=== PATIENT | male | born 1945 | race African-American/Black ===

== ENCOUNTER 2020-03-26 03:29 | Inpatient (IN) | payer MEDICARE, OTHER ==
[~2020-03-26] VITALS: Ht 172.7 cm; Wt 87.6 kg
[2020-03-26 04:45] LABS: BASOPHILS % 0.4 % (0.0-2.0); EOSINOPHILS % 0.7 % (0.0-5.0); HEMATOCRIT. 39.7 % (42.0-52.0); HEMOGLOBIN. 13.3 g/dL (14.0-18.0); LYMPHOCYTES % 56.1 % (20.0-50.0); MEAN CORPUSCULAR HEMOGLOBIN 33.3 pg (28.0-32.0); MEAN CORPUSCULAR VOLUME 99.8 fL (80.0-94.0); MEAN PLATELET VOLUME 7.9 fl (7.4-10.4); MONOCYTES % 6.2 % (2.0-8.0); NEUTROPHILS % 36.6 % (40.0-76.0); RED BLOOD CELL COUNT 3.98 mill/uL (4.7-6.1); RED CELL DISTRIBUTION WIDTH 15.5 % (11.6-14.6)
[2020-03-26 04:52] LABS: CHLORIDE 95 mEq/L (98-107)
[2020-03-26 04:54] LABS: INR 1.4; PROTHROMBIN TIME 14.2 sec (9.6-11.0)
[2020-03-26] MEDS ORDERED: SODIUM CHLORIDE 0.9% 500 ML IV SCH (05:00)
[2020-03-26 08:16] LABS: CLARITY URINE CLOUDY (CLEAR); COLOR URINE YELLOW (YELLOW); KETONES URINE NEGATIVE (NEGATIVE); LEUKOCYTE ESTERASE URINE 2+ (NEGATIVE); NITRITE URINE NEGATIVE (NEGATIVE); OCCULT BLOOD URINE NEGATIVE (NEGATIVE); PH URINE 6.5 (4.5-8.0); PROTEIN URINE NEGATIVE (NEGATIVE); SPECIFIC GRAVITY URINE 1.006 (1.005-1.030)
[2020-03-26] MEDS ORDERED: DIPHENHYDRAMINE 50MG/ML VIAL IV PRN (15:30)
[2020-03-26] MEDS ORDERED: ONDANSETRON HCL 4MG/2ML INJ IV PRN (15:30)
[2020-03-26] MEDS ORDERED: LORAZEPAM 2MG/ML CPJ IV PRN (15:30)
[2020-03-26] MEDS ORDERED: MORPHINE SULFATE 2 MG/ML CPJ (NOT FOR IM USE) IV PRN (15:30)
[2020-03-26] MEDS ORDERED: HYDROCODONE/ACETAMINOPHEN 5/325MG TABLET PO PRN (15:30)
[2020-03-26] MEDS ORDERED: ENOXAPARIN 40MG/0.4ML SYR SUBCUT SCH (15:30)
[2020-03-26] MEDS ORDERED: ACETAMINOPHEN 650MG/20.3ML UDC GT PRN (15:30)
[2020-03-26] MEDS ORDERED: DOCUSATE SODIUM 100MG CAPSULE PO PRN (15:30)
[2020-03-26] MEDS ORDERED: CEFTRIAXONE 1 G PREMIX 50 ML IV SCH (16:00)
[2020-03-26] MEDS: SODIUM CHLORIDE 0.9% 1,000 ML IV SCH (16:07)
[2020-03-26] MEDS: THIAMINE HCL 100MG TABLET PO SCH (16:07)
[2020-03-26 23:28] LABS: CREATINE KINASE 251 IU/L (39-308)
[2020-03-26 23:29] LABS: CREATINE KINASE MB FRACTION 2.3 ng/mL (0.5-3.6)
[2020-03-27] VITALS (8 sets, daily range): BP systolic 125–169; BP diastolic 61–86
[2020-03-27 06:58] LABS: BASOPHILS % 0.7 % (0.0-2.0); EOSINOPHILS % 1.8 % (0.0-5.0); HEMATOCRIT. 37.7 % (42.0-52.0); HEMOGLOBIN. 12.8 g/dL (14.0-18.0); LYMPHOCYTES % 58.3 % (20.0-50.0); MEAN CORPUSCULAR HEMOGLOBIN 33.3 pg (28.0-32.0); MEAN CORPUSCULAR VOLUME 98.1 fL (80.0-94.0); MEAN PLATELET VOLUME 8.2 fl (7.4-10.4); MONOCYTES % 7.8 % (2.0-8.0); NEUTROPHILS % 31.4 % (40.0-76.0); PLATELET 60 x1000/uL (130-400); RED BLOOD CELL COUNT 3.84 mill/uL (4.7-6.1); RED CELL DISTRIBUTION WIDTH 16.2 % (11.6-14.6)
[2020-03-27 08:07] LABS: CHLORIDE 104 mEq/L (98-107)
[2020-03-27 08:20] LABS: PHOSPHORUS 1.9 mg/dL (2.5-4.9)
[2020-03-27 08:23] LABS: CREATINE KINASE 258 IU/L (39-308)
[2020-03-27 08:24] LABS: CREATINE KINASE MB FRACTION 2.8 ng/mL (0.5-3.6)
[2020-03-27] MEDS ORDERED: ASPIRIN 81MG EC TABLET PO SCH (09:00)
[2020-03-27] MEDS: THIAMINE HCL 100MG TABLET PO SCH (09:09)
[2020-03-27] MEDS: SODIUM CHLORIDE 0.9% 1,000 ML IV SCH (11:44)
[2020-03-27] MEDS: FOLIC ACID 1MG TABLET PO SCH (13:18)
[2020-03-27] MEDS: CARVEDILOL 6.25 MG TABLET PO SCH ×2 (13:20→21:13)
[2020-03-27] MEDS: CEFTRIAXONE 1,000 MG in DEXTROSE 5% WATER 50 ML IV SCH (16:22)
[2020-03-28] VITALS (9 sets, daily range): BP systolic 115–167; BP diastolic 67–96
[2020-03-28] MEDS: SODIUM CHLORIDE 0.9% 1,000 ML IV SCH (02:38)
[2020-03-28] MEDS ORDERED: LEVO500T89 MT (09:15)
[2020-03-28] MEDS ORDERED: THIA100T72 PO (09:15)
[2020-03-28] MEDS ORDERED: COR6 PO (09:15)
[2020-03-28] MEDS: FOLIC ACID 1MG TABLET PO SCH (09:49)
[2020-03-28] MEDS: CARVEDILOL 6.25 MG TABLET PO SCH (09:49)
[2020-03-28] MEDS: THIAMINE HCL 100MG TABLET PO SCH (09:58)
[2020-03-28] MEDS: CEFTRIAXONE 1,000 MG in DEXTROSE 5% WATER 50 ML IV SCH (16:30)
[2020-04-01 19:06] LABS: 25-HYDROXY VITAMIN D3 3.4 ng/mL (.)
== END 2020-03-28 19:15 | disposition home or self-care (01) | DRG 871 ==
LOC: ER 03:29 → MICUSO 06:14 → EDBEDREQ 06:19 → EDBEDREQTM 06:19 → 5EST 03-27 01:11 → CANBEDREQ 03-27 09:15 → 5EST 03-27 14:48
PROVIDERS: ADMIT Internal Medicine Nephrology; ATTEND Internal Medicine Nephrology
DX: A41.9 Sepsis, unspecified organism (principal); I50.43 Acute on chronic combined systolic (congestive) and diastolic (congestive) heart failure; D61.818 Other pancytopenia; E44.1 Mild protein-calorie malnutrition; E87.1 Hypo-osmolality and hyponatremia; N39.0 Urinary tract infection, site not specified; I47.2 Ventricular tachycardia; E87.6 Hypokalemia; G62.9 Polyneuropathy, unspecified; G90.8 Other disorders of autonomic nervous system; I16.0 Hypertensive urgency; R74.01 Elevation of levels of liver transaminase levels; R53.81 Other malaise; I11.0 Hypertensive heart disease with heart failure; F10.10 Alcohol abuse, uncomplicated; Z60.2 Problems related to living alone; Z71.41 Alcohol abuse counseling and surveillance of alcoholic; Z79.899 Other long term (current) drug therapy; Z68.29 Body mass index [BMI] 29.0-29.9, adult; Z87.891 Personal history of nicotine dependence; Z82.49 Family history of ischemic heart disease and other diseases of the circulatory system; R07.89 Other chest pain
CPT/HCPCS: 36415; 70551; 71045; 76700; 80048; 80053; 80061; 81003; 82306; 82550; 82553; 82607; 82746; 83605; 83735; 84100; 84145; 84443; 84484; 85025; 93005; 93306; 97162; 97166; 99285; J0696; J7030; J7040; J7060

== ENCOUNTER 2020-07-03 19:51 | Inpatient (IN) | payer MEDICARE ==
[~2020-07-03] VITALS: Ht 172.7 cm; Wt 84.8 kg
[~2020-07-03 19:51] MED LIST: COR6 PO; LEVO500T89 MT; THIA100T72 PO
[2020-07-04] MEDS ORDERED: SODIUM CHLORIDE 0.9% 1,000 ML IV ONE (03:00)
[2020-07-04 03:44] LABS: BASOPHILS % 0.6 % (0.0-2.0); EOSINOPHILS % 0.7 % (0.0-5.0); HEMATOCRIT. 35.7 % (42.0-52.0); HEMOGLOBIN. 12.1 g/dL (14.0-18.0); LYMPHOCYTES % 52.4 % (20.0-50.0); MEAN CORPUSCULAR HEMOGLOBIN 37.8 pg (28.0-32.0); MEAN CORPUSCULAR VOLUME 111.3 fL (80.0-94.0); MEAN PLATELET VOLUME 7.4 fl (7.4-10.4); MONOCYTES % 10.6 % (2.0-8.0); NEUTROPHILS % 35.7 % (40.0-76.0); PLATELET 197 x1000/uL (130-400); RED BLOOD CELL COUNT 3.21 mill/uL (4.7-6.1)
[2020-07-04 03:48] LABS: CHLORIDE 102 mEq/L (98-107)
[2020-07-04 04:22] LABS: PLATELET ESTIMATE NORMAL
[2020-07-04] MEDS ORDERED: GUAIFENESIN 200MG/10ML SUGAR FREE UDC PO PRN (05:45)
[2020-07-04] MEDS ORDERED: DOCUSATE SODIUM 100MG CAPSULE PO PRN (05:45)
[2020-07-04] MEDS ORDERED: MAGNESIUM/ALUMINUM HYDROXIDE/SIMETHICONE 30ML UDC PO PRN (05:45)
[2020-07-04] MEDS ORDERED: HYDROCODONE/ACETAMINOPHEN 5/325MG TABLET PO PRN (05:45)
[2020-07-04] MEDS ORDERED: CLONIDINE 0.1MG TABLET PO PRN (05:45)
[2020-07-04] MEDS ORDERED: ONDANSETRON HCL 4MG/2ML INJ IV PRN (05:45)
[2020-07-04] MEDS: SODIUM CHLORIDE 0.45% 1,000 ML IV SCH ×2 (06:33→18:22)
[2020-07-04] MEDS: ACETAMINOPHEN 325MG TABLET PO PRN (07:50)
[2020-07-04 08:30] VITALS: BP 144/55
[2020-07-04 10:00] VITALS: BP 144/55
[2020-07-04 12:00] VITALS: BP 138/52
[2020-07-04] MEDS ORDERED: FOLI-43 MT (12:08)
[2020-07-04] MEDS ORDERED: KEPP500 MT (12:08)
[2020-07-04] MEDS ORDERED: FOLI-68 PO (12:08)
[2020-07-04] MEDS ORDERED: AMLO5TAB88 MT (12:08)
[2020-07-04] MEDS ORDERED: PROT40 MT (12:08)
[2020-07-04] MEDS ORDERED: INFLUENZA VACCINE 05/PF 0.5 ML VIAL IM ONE (15:15)
[2020-07-04 16:00] VITALS: BP 137/57
[2020-07-04 18:00] VITALS: BP 136/60
[2020-07-04 20:00] VITALS: BP 143/55
[2020-07-04] MEDS ORDERED: POTASSIUM CHLORIDE 20MEQ TABLET SR PO NR (21:00)
[2020-07-05] VITALS (7 sets, daily range): BP systolic 107–133; BP diastolic 54–62
[2020-07-05 07:59] LABS: BASOPHILS % 0.9 % (0.0-2.0); EOSINOPHILS % 0.6 % (0.0-5.0); HEMATOCRIT. 35.6 % (42.0-52.0); LYMPHOCYTES % 38.7 % (20.0-50.0); MEAN CORPUSCULAR HEMOGLOBIN 37.8 pg (28.0-32.0); MEAN CORPUSCULAR VOLUME 112.4 fL (80.0-94.0); MEAN PLATELET VOLUME 7.2 fl (7.4-10.4); MONOCYTES % 12.1 % (2.0-8.0); NEUTROPHILS % 47.7 % (40.0-76.0); PLATELET 228 x1000/uL (130-400); RED BLOOD CELL COUNT 3.17 mill/uL (4.7-6.1); RED CELL DISTRIBUTION WIDTH 17.5 % (11.6-14.6)
[2020-07-05 08:07] LABS: CHLORIDE 103 mEq/L (98-107)
[2020-07-05 08:16] LABS: T4 FREE 1.37 ng/dL (0.76-1.46)
[2020-07-05] MEDS: SODIUM CHLORIDE 0.45% 1,000 ML IV SCH (09:01)
[2020-07-06] VITALS: BP 121/60
[2020-07-06 09:16] VITALS: BP 122/56
[2020-07-06 12:00] VITALS: BP 103/50
[2020-07-06] MEDS: SODIUM CHLORIDE 0.45% 1,000 ML IV SCH (12:38)
[2020-07-06 16:00] VITALS: BP 121/51
[2020-07-06] MEDS: ACETAMINOPHEN 325MG TABLET PO PRN (16:20)
[2020-07-06 20:00] VITALS: BP 115/61
[2020-07-07] MEDS: SODIUM CHLORIDE 0.45% 1,000 ML IV SCH ×2 (00:25→20:02)
[2020-07-07 04:00] VITALS: BP 117/66
[2020-07-07 08:00] VITALS: BP 133/66
[2020-07-07 12:00] VITALS: BP 113/42
[2020-07-07] MEDS: ACETAMINOPHEN 325MG TABLET PO PRN (14:25)
[2020-07-07 16:00] VITALS: BP 132/48
[2020-07-07 20:00] VITALS: BP 123/47
[2020-07-08] VITALS: BP 121/50
[2020-07-08] MEDS: SODIUM CHLORIDE 0.45% 1,000 ML IV SCH ×2 (02:36→16:25)
[2020-07-08 04:00] VITALS: BP 119/50
[2020-07-08] MEDS: ACETAMINOPHEN 325MG TABLET PO PRN ×2 (07:47→16:59)
[2020-07-08 08:00] VITALS: BP 108/58
[2020-07-08 11:40] LABS: VITAMIN B12 SERUM 443 pg/mL (211-911)
[2020-07-08 12:00] VITALS: BP 106/40
[2020-07-08 16:00] VITALS: BP 120/49
[2020-07-08 20:00] VITALS: BP 120/44
[2020-07-09] VITALS: BP 119/52
[2020-07-09 04:00] VITALS: BP 119/42
[2020-07-09] MEDS: SODIUM CHLORIDE 0.45% 1,000 ML IV SCH ×2 (05:13→19:05)
[2020-07-09] MEDS: ACETAMINOPHEN 325MG TABLET PO PRN ×3 (07:50→22:40)
[2020-07-09 08:00] VITALS: BP 101/42
[2020-07-09 12:00] VITALS: BP 130/46
[2020-07-09 16:00] VITALS: BP 127/44
[2020-07-09 20:00] VITALS: BP 125/52
[2020-07-10] VITALS: BP 130/70
[2020-07-10 04:00] VITALS: BP 137/60
[2020-07-10] MEDS: SODIUM CHLORIDE 0.45% 1,000 ML IV SCH (07:55)
[2020-07-10 08:00] VITALS: BP 122/50
[2020-07-10 12:00] VITALS: BP 129/72
[2020-07-10] MEDS: ACETAMINOPHEN 325MG TABLET PO PRN (14:12)
[2020-07-10 15:54] VITALS: BP 129/72
== END 2020-07-10 17:40 | DRG 74 ==
LOC: ER 20:31 → EDBEDREQ 07-04 03:03 → 8WST 07-04 04:42 → EDBEDREQ 07-04 04:43 → EDBEDREQTM 07-04 04:43 → ENRESERV 07-04 07:44
PROVIDERS: ADMIT Hospitalist; ATTEND Hospitalist
DX: G90.8 Other disorders of autonomic nervous system (principal); E44.1 Mild protein-calorie malnutrition; E87.1 Hypo-osmolality and hyponatremia; I11.9 Hypertensive heart disease without heart failure; R26.81 Unsteadiness on feet; F03.90 Unspecified dementia, unspecified severity, without behavioral disturbance, psychotic disturbance, mood disturbance, and anxiety; R29.6 Repeated falls; W18.39XA Other fall on same level, initial encounter; Y93.89 Activity, other specified; Y92.89 Other specified places as the place of occurrence of the external cause; Y99.8 Other external cause status; Z68.28 Body mass index [BMI] 28.0-28.9, adult
CPT/HCPCS: 36415; 70551; 71045; 72128; 72131; 80053; 82607; 84439; 84443; 84484; 85025; 93005; 93306; 93970; 97116; 97162; 99285; J7030

== ENCOUNTER 2021-02-08 07:00 | Emergency (ER) | payer OTHER, MEDICAID ==
[~2021-02-08] VITALS: Ht 177.8 cm; Wt 84.0 kg
[~2021-02-08 07:00] MED LIST changes: +AMLO5TAB88 MT; -COR6 PO; +FOLI-43 MT; +FOLI-68 PO; +KEPP500 MT; -LEVO500T89 MT; +PROT40 MT
[2021-02-08 08:53] LABS: BASOPHILS % 0.7 % (0.0-2.0); EOSINOPHILS % 0.7 % (0.0-5.0); HEMATOCRIT. 41.1 % (42.0-52.0); HEMOGLOBIN. 14.1 g/dL (14.0-18.0); LYMPHOCYTES % 60.5 % (20.0-50.0); MEAN CORPUSCULAR HEMOGLOBIN 32.3 pg (28.0-32.0); MEAN CORPUSCULAR VOLUME 94.1 fL (80.0-94.0); MEAN PLATELET VOLUME 8.4 fl (7.4-10.4); MONOCYTES % 12.5 % (2.0-8.0); NEUTROPHILS % 25.6 % (40.0-76.0); PLATELET 144 x1000/uL (130-400); RED BLOOD CELL COUNT 4.37 mill/uL (4.7-6.1); RED CELL DISTRIBUTION WIDTH 13.7 % (11.6-14.6)
[2021-02-08 08:58] LABS: CHLORIDE 100 mEq/L (98-107)
[2021-02-08 09:59] LABS: CLARITY URINE CLOUDY (CLEAR); COLOR URINE YELLOW (YELLOW); KETONES URINE NEGATIVE (NEGATIVE); LEUKOCYTE ESTERASE URINE 3+ (NEGATIVE); NITRITE URINE NEGATIVE (NEGATIVE); OCCULT BLOOD URINE TRACE (NEGATIVE); PROTEIN URINE TRACE (NEGATIVE); SPECIFIC GRAVITY URINE 1.009 (1.005-1.030); UROBILINOGEN URINE 0.2 E.U./dL (0.2-1.0)
[2021-02-08] MEDS ORDERED: KETOROLAC 30MG/ML VIAL IV ONE (10:00)
[2021-02-08] MEDS ORDERED: ACETAMINOPHEN WITH CODEINE 300/30MG TABLET PO ONE (10:00)
[2021-02-08] MEDS ORDERED: LEVOFLOXACIN 250MG TABLET PO ONE (10:30)
[2021-02-08] MEDS ORDERED: TOPUD PO (10:35)
[2021-02-08] MEDS ORDERED: LEVO750T46 PO (10:35)
[2021-02-08 12:31] VITALS: BP 136/70
== END 2021-02-08 16:29 ==
LOC: ER 07:00
DX: N39.0 Urinary tract infection, site not specified (principal); D64.9 Anemia, unspecified; K21.9 Gastro-esophageal reflux disease without esophagitis; I10 Essential (primary) hypertension; Z79.899 Other long term (current) drug therapy
CPT/HCPCS: 36415; 74176; 80053; 81003; 83690; 85025; 87077; 87086; 87186; 96374; 99284; J1885

== ENCOUNTER 2021-09-20 09:38 | Emergency (ER) | payer OTHER ==
[~2021-09-20] VITALS: Ht 175.3 cm; Wt 77.0 kg
[~2021-09-20 09:38] MED LIST changes: +LEVO750T46 PO; +TOPUD PO
[2021-09-20] MEDS ORDERED: KETOROLAC 30MG/ML VIAL IM ONE (10:15)
[2021-09-20 10:27] VITALS: BP 139/66
[2021-09-20] MEDS ORDERED: MELO-104 MT (12:03)
== END 2021-09-20 13:33 | disposition home or self-care (01) ==
LOC: ER 09:55
DX: M16.11 Unilateral primary osteoarthritis, right hip (principal)
CPT/HCPCS: 73502; 96372; 99283; J1885

== ENCOUNTER 2021-09-21 01:45 | Emergency (ER) | payer OTHER ==
[~2021-09-21] VITALS: Ht 188 cm; Wt 120.0 kg
[~2021-09-21 01:45] MED LIST changes: -LEVO750T46 PO; +LEVO750T68 PO; +MELO-104 MT
[2021-09-21] MEDS ORDERED: ASPIRIN 81MG TABLET PO ONE (03:30)
[2021-09-21] MEDS ORDERED: SODIUM CHLORIDE 0.9% 1,000 ML IV ONE ×2 (03:30→07:00)
[2021-09-21 04:24] LABS: HEMATOCRIT. 37.6 % (42.0-52.0); HEMOGLOBIN. 12.5 g/dL (14.0-18.0); MEAN CORPUSCULAR HEMOGLOBIN 33.9 pg (28.0-32.0); MEAN CORPUSCULAR VOLUME 101.6 fL (80.0-94.0); MEAN PLATELET VOLUME 7.4 fl (7.4-10.4); PLATELET 126 x1000/uL (130-400); RED CELL DISTRIBUTION WIDTH 15.5 % (11.6-14.6)
[2021-09-21 04:38] LABS: CHLORIDE 102 mEq/L (98-107)
[2021-09-21 04:59] LABS: PLATELET ESTIMATE DECREASED
[2021-09-21] MEDS ORDERED: POTASSIUM CHLORIDE 20MEQ TABLET SR PO NR (05:30)
[2021-09-21 08:53] VITALS: BP 99/40
== END 2021-09-21 09:05 | disposition short-term general hospital (02) ==
LOC: ER 01:45
DX: N17.9 Acute kidney failure, unspecified (principal); R53.1 Weakness; I10 Essential (primary) hypertension; Z20.822 Contact with and (suspected) exposure to COVID-19; R90.82 White matter disease, unspecified
CPT/HCPCS: 36415; 70450; 71045; 80053; 80320; 83880; 84484; 85025; 87426; 93005; 96360; 96361; 99285; J7030; G0480

== ENCOUNTER 2022-01-12 06:21 | Emergency (ER) | payer MEDICARE, MEDICAID ==
[~2022-01-12] VITALS: Ht 172.7 cm; Wt 75.0 kg
[2022-01-12 10:26] LABS: BASOPHILS % 1.1 % (0.0-2.0); EOSINOPHILS % 1.3 % (0.0-5.0); HEMATOCRIT. 41.2 % (42.0-52.0); HEMOGLOBIN. 14.2 g/dL (14.0-18.0); LYMPHOCYTES % 50.1 % (20.0-50.0); MEAN CORPUSCULAR VOLUME 95.9 fL (80.0-94.0); MEAN PLATELET VOLUME 8.5 fl (7.4-10.4); MONOCYTES % 8.3 % (2.0-8.0); NEUTROPHILS % 39.2 % (40.0-76.0); PLATELET 235 x1000/uL (130-400)
[2022-01-12 10:35] LABS: CHLORIDE 102 mEq/L (98-107)
[2022-01-12 10:38] LABS: INR 1.1; PROTHROMBIN TIME 11.3 sec (9.6-11.0)
[2022-01-12 14:54] VITALS: BP 126/67
== END 2022-01-12 14:59 | disposition home or self-care (01) ==
LOC: ER 06:34
DX: R06.02 Shortness of breath (principal); R07.89 Other chest pain; D64.9 Anemia, unspecified; K21.9 Gastro-esophageal reflux disease without esophagitis; I10 Essential (primary) hypertension; Z79.899 Other long term (current) drug therapy
CPT/HCPCS: 36415; 71045; 80053; 84484; 85025; 99284

== ENCOUNTER 2023-01-02 17:46 | Emergency (ER) | payer MEDICARE, MEDICAID ==
[~2023-01-02] VITALS: Ht 170.2 cm; Wt 78.0 kg
[2023-01-02 17:51] VITALS: BP 136/55; PULSE 78; RESP 16; TEMP 97.9; O2SAT 98
[2023-01-02 20:39] LABS: BASOPHILS % 0.7 % (0.0-2.0); EOSINOPHILS % 7.8 % (0.0-5.0); HEMATOCRIT. 37.5 % (42.0-52.0); HEMOGLOBIN. 12.9 g/dL (14.0-18.0); LYMPHOCYTES % 39.3 % (20.0-50.0); MEAN CORPUSCULAR HEMOGLOBIN 33.8 pg (28.0-32.0); MEAN CORPUSCULAR HGB CONC 34.4 g/dL (31.0-37.0); MEAN CORPUSCULAR VOLUME 98.4 fL (80.0-94.0); MEAN PLATELET VOLUME 6.9 fl (7.4-10.4); MONOCYTES % 9.3 % (2.0-8.0); NEUTROPHILS % 42.9 % (40.0-76.0); PLATELET 278 x1000/uL (130-400); RED BLOOD CELL COUNT 3.82 mill/uL (4.7-6.1); RED CELL DISTRIBUTION WIDTH 14.2 % (11.6-14.6); WHITE BLOOD COUNT 9.4 x1000/uL (4.5-11.0)
[2023-01-02 20:59] LABS: ALANINE AMINOTRANSFERASE 18 IU/L (10-49); ALBUMIN 3.9 g/dL (3.2-4.8); ASPARTATE AMINOTRANSFERASE 25 IU/L (<34); BILIRUBIN TOTAL 0.4 mg/dL (0.1-1.0); CALCIUM 8.9 mg/dL (8.7-10.4); CARBON DIOXIDE 26 mEq/L (21-32); CHLORIDE 102 mEq/L (98-107); CREATININE 0.8 mg/dL (0.6-1.3); GLUCOSE 119 mg/dL (70-105); POTASSIUM 4.3 mEq/L (3.5-5.1); PROTEIN TOTAL 6.9 g/dL (6.0-8.3); SODIUM 136 mEq/L (136-145); UREA NITROGEN BLOOD 9 mg/dL (9-23)
[2023-01-02] MEDS ORDERED: CLIN-116 MT (21:07)
[2023-01-02] MEDS ORDERED: CEPHALEXIN 250MG CAPSULE PO ONE (21:15)
[2023-01-02] MEDS ORDERED: DIPHENHYDRAMINE 25MG CAPSULE PO ONE (21:15)
== END 2023-01-02 23:16 | disposition home or self-care (01) ==
LOC: ER 17:46
DX: M79.605 Pain in left leg (principal); M79.604 Pain in right leg; I10 Essential (primary) hypertension; Z98.890 Other specified postprocedural states
CPT/HCPCS: 99285; 93970; 71045; 80053; 83880; 83605; 85025; 85379; 36415; 93005; Q0163

== ENCOUNTER 2023-01-12 13:04 | Emergency (ER) | payer MEDICARE, MEDICAID ==
[~2023-01-12] VITALS: Ht 170.2 cm; Wt 70.0 kg
[~2023-01-12 13:04] MED LIST changes: +CLIN-116 MT
[2023-01-12 13:11] VITALS: O2SAT 100
[2023-01-12] MEDS ORDERED: LANOLIN OINT 7GM TUBE TOP ONE (13:45)
[2023-01-12] MEDS ORDERED: PREDNISONE 20MG TABLET PO ONE (13:45)
[2023-01-12] MEDS ORDERED: PETR5OIN3 TP (14:06)
[2023-01-12] MEDS ORDERED: P20 MT (14:06)
[2023-01-12 18:44] VITALS: BP 172/69; PULSE 85; RESP 19; TEMP 98.2
== END 2023-01-12 19:09 | disposition home or self-care (01) ==
LOC: ER 13:04
DX: L30.9 Dermatitis, unspecified (principal); K21.9 Gastro-esophageal reflux disease without esophagitis; D64.9 Anemia, unspecified; I10 Essential (primary) hypertension; Z79.899 Other long term (current) drug therapy
CPT/HCPCS: 99283; J7512

== ENCOUNTER 2023-03-07 14:26 | Emergency (ER) | payer MEDICARE, MEDICAID ==
[~2023-03-07] VITALS: Ht 188 cm; Wt 101.0 kg
[~2023-03-07 14:26] MED LIST changes: +BUSP5TAB3 PO; +DULO60CA64 PO; +GABA-290 PO; +LEVE500T19 PO; +P20 MT; +PETR5OIN3 TP
[2023-03-07 14:30] VITALS: BP 130/106; PULSE 87; RESP 18; TEMP 98.6; O2SAT 97
[2023-03-07 15:20] LABS: BASOPHILS % 0.8 % (0.0-2.0); EOSINOPHILS % 11.8 % (0.0-5.0); HEMATOCRIT. 35.9 % (42.0-52.0); HEMOGLOBIN. 11.5 g/dL (14.0-18.0); LYMPHOCYTES % 49.8 % (20.0-50.0); MEAN CORPUSCULAR HEMOGLOBIN 30.4 pg (28.0-32.0); MEAN CORPUSCULAR VOLUME 95.1 fL (80.0-94.0); MEAN PLATELET VOLUME 7.2 fl (7.4-10.4); MONOCYTES % 9.7 % (2.0-8.0); NEUTROPHILS % 27.9 % (40.0-76.0); PLATELET 262 x1000/uL (130-400); RED BLOOD CELL COUNT 3.77 mill/uL (4.7-6.1)
[2023-03-07 15:39] LABS: ALANINE AMINOTRANSFERASE 9 IU/L (10-49); ALBUMIN 3.7 g/dL (3.2-4.8); ASPARTATE AMINOTRANSFERASE 17 IU/L (<34); BILIRUBIN TOTAL 0.2 mg/dL (0.1-1.0); CALCIUM 8.6 mg/dL (8.7-10.4); CARBON DIOXIDE 19 mEq/L (21-32); CHLORIDE 107 mEq/L (98-107); CREATININE 1.1 mg/dL (0.6-1.3); ETHANOL BLOOD 245 mg/dL (<10); GLUCOSE 99 mg/dL (70-105); POTASSIUM 3.4 mEq/L (3.5-5.1); PROTEIN TOTAL 7.2 g/dL (6.0-8.3); SODIUM 138 mEq/L (136-145); TROPONIN I HIGH SENSITIVITY 5 ng/L (3.0-53); UREA NITROGEN BLOOD 14 mg/dL (9-23)
== END 2023-03-07 22:53 ==
LOC: ER 14:30
DX: F10.129 Alcohol abuse with intoxication, unspecified (principal); D64.9 Anemia, unspecified; K21.9 Gastro-esophageal reflux disease without esophagitis; R41.82 Altered mental status, unspecified; I10 Essential (primary) hypertension; Y90.8 Blood alcohol level of 240 mg/100 ml or more
CPT/HCPCS: 36415; 71045; 80053; 80320; 84443; 84484; 85025; 93005; 99285; G0480

== ENCOUNTER 2023-03-26 01:05 | Emergency (ER) | payer MEDICARE, MEDICAID ==
[~2023-03-26] VITALS: Ht 175.3 cm; Wt 89.0 kg
[2023-03-26 01:12] VITALS: O2SAT 97
[2023-03-26] MEDS ORDERED: MORPHINE SULFATE 4 MG/ML CPJ (NOT FOR IM USE) IV ONE (01:45)
[2023-03-26] MEDS ORDERED: ONDANSETRON HCL 4MG/2ML INJ IV ONE (01:45)
[2023-03-26 02:25] LABS: EOSINOPHILS % 8.8 % (0.0-5.0); HEMATOCRIT. 38.8 % (42.0-52.0); HEMOGLOBIN. 12.9 g/dL (14.0-18.0); MEAN CORPUSCULAR HEMOGLOBIN 30.7 pg (28.0-32.0); MEAN CORPUSCULAR HGB CONC 33.2 g/dL (31.0-37.0); MEAN CORPUSCULAR VOLUME 92.5 fL (80.0-94.0); MEAN PLATELET VOLUME 8.5 fl (7.4-10.4); MONOCYTES % 9.3 % (2.0-8.0); NEUTROPHILS % 50.9 % (40.0-76.0); PLATELET 186 x1000/uL (130-400); RED CELL DISTRIBUTION WIDTH 15.3 % (11.6-14.6); WHITE BLOOD COUNT 9.9 x1000/uL (4.5-11.0)
[2023-03-26 02:54] LABS: ALANINE AMINOTRANSFERASE 27 IU/L (10-49); ALBUMIN 4.4 g/dL (3.2-4.8); ASPARTATE AMINOTRANSFERASE 48 IU/L (<34); BILIRUBIN TOTAL 0.4 mg/dL (0.1-1.0); CALCIUM 9.5 mg/dL (8.7-10.4); CARBON DIOXIDE 27 mEq/L (21-32); CHLORIDE 105 mEq/L (98-107); CREATININE 0.8 mg/dL (0.6-1.3); GLUCOSE 102 mg/dL (70-105); POTASSIUM 4.4 mEq/L (3.5-5.1); PROTEIN TOTAL 7.7 g/dL (6.0-8.3); SODIUM 138 mEq/L (136-145); UREA NITROGEN BLOOD 15 mg/dL (9-23); URIC ACID 5.1 mg/dL (3.7-9.2)
[2023-03-26] MEDS ORDERED: HYDR-4001 MT (04:10)
[2023-03-26] MEDS: HYDROCODONE/ACETAMINOPHEN 5/325MG TABLET PO ONE (09:15)
[2023-03-26] MEDS: MORPHINE SULFATE 4 MG/ML CPJ (NOT FOR IM USE) IV NR (09:16)
[2023-03-26] MEDS: ONDANSETRON HCL 4MG/2ML INJ IV NR (09:16)
[2023-03-26 11:49] VITALS: BP 133/64; PULSE 67; RESP 18; TEMP 98.7
== END 2023-03-26 12:03 | disposition home or self-care (01) ==
LOC: ER 01:05
DX: G56.91 Unspecified mononeuropathy of right upper limb (principal); I10 Essential (primary) hypertension; R51.9 Headache, unspecified; Z79.899 Other long term (current) drug therapy; Z86.59 Personal history of other mental and behavioral disorders
CPT/HCPCS: 36415; 73090; 73110; 73130; 80053; 84550; 85025; 93005; 99285

== ENCOUNTER 2024-12-31 11:14 | Emergency (ER) | payer MEDICARE, MEDICAID ==
[~2024-12-31] VITALS: Ht 170.2 cm; Wt 70.0 kg
[~2024-12-31 11:14] MED LIST changes: -CLIN-116 MT; -FOLI-68 PO; -KEPP500 MT; -LEVO750T68 PO; -MELO-104 MT; -P20 MT; -PETR5OIN3 TP
[2024-12-31 11:21] VITALS: O2SAT 97
[2024-12-31 12:09] LABS: BASOPHILS % 1.0 % (0.0-2.0); EOSINOPHILS % 3.0 % (0.0-5.0); HEMATOCRIT. 40.5 % (42.0-52.0); HEMOGLOBIN. 13.5 g/dL (14.0-18.0); LYMPHOCYTES % 43.9 % (20.0-50.0); MEAN PLATELET VOLUME 8.2 fl (7.4-10.4); MONOCYTES % 7.4 % (2.0-8.0); NEUTROPHILS % 44.7 % (40.0-76.0); PLATELET 202 x1000/uL (130-400); RED BLOOD CELL COUNT 3.99 mill/uL (4.7-6.1); RED CELL DISTRIBUTION WIDTH 13.5 % (11.6-14.6)
[2024-12-31 12:36] LABS: CREATININE 0.9 mg/dL (0.6-1.3); UREA NITROGEN BLOOD 12 mg/dL (9-23)
[2024-12-31 12:38] LABS: ASPARTATE AMINOTRANSFERASE 19 IU/L (<34); BILIRUBIN DIRECT 0.1 mg/dL (<=3.0); BILIRUBIN TOTAL 0.4 mg/dL (0.1-1.0); PROTEIN TOTAL 7.8 g/dL (6.0-8.3)
[2024-12-31 13:07] LABS: CLARITY URINE CLOUDY (CLEAR); COLOR URINE YELLOW (YELLOW); GLUCOSE URINE NEGATIVE (NEGATIVE); KETONES URINE NEGATIVE (NEGATIVE); LEUKOCYTE ESTERASE URINE 3+ (NEGATIVE); NITRITE URINE POSITIVE (NEGATIVE); OCCULT BLOOD URINE TRACE (NEGATIVE); PH URINE 7.0 (4.5-8.0); PROTEIN URINE NEGATIVE (NEGATIVE); SPECIFIC GRAVITY URINE 1.006 (1.005-1.030); UROBILINOGEN URINE 0.2 E.U./dL (0.2-1.0)
[2024-12-31 13:45] LABS: BACTERIA URINE 3+; RBC URINE 0-2 /hpf (0-2); SQUAMOUS EPITHELIAL CELL URINE RARE /lpf (RARE/1+); WBC URINE TNTC /hpf (0-2)
[2024-12-31] MEDS ORDERED: POLY119P2 MT (14:14)
[2024-12-31 19:56] VITALS: BP 107/61; PULSE 79; RESP 18; TEMP 36.8; O2SAT 98
[2024-12-31] MEDS: IOHEXOL-300 100 ML BOTTLE ONE (20:04)
== END 2024-12-31 19:57 | disposition home or self-care (01) ==
LOC: ER 11:14
DX: K59.00 Constipation, unspecified (principal); E78.00 Pure hypercholesterolemia, unspecified; I10 Essential (primary) hypertension; K21.9 Gastro-esophageal reflux disease without esophagitis; Z79.899 Other long term (current) drug therapy
CPT/HCPCS: 99285; 74177; 80076; 80048; 81003; 83690; 85025; 87086; 87186; 87077; 36415; Q9967